=== PATIENT | female | born 1970 ===

== ENCOUNTER → 2018-06-20 | Outpatient (CLI) | payer OTHER ==
[~2018-06-20] MED LIST: GILTUSS TR TAB1 EACH PO; ZYRTEC10 MG PO
== END | disposition home or self-care (01) ==
LOC: SONOGRAMA 09:34 → MAMO-SONO 11:45
DX: R10.2 Pelvic and perineal pain (principal); N20.0 Calculus of kidney

== ENCOUNTER 2018-08-06 09:01 | Emergency (ER) | payer OTHER ==
[~2018-08-06] VITALS: Ht 165.1 cm; Wt 64.9 kg
== END 2018-08-06 12:10 | disposition home or self-care (01) ==
LOC: ER 09:01
DX: J11.1 Influenza due to unidentified influenza virus with other respiratory manifestations (principal)

== ENCOUNTER → 2021-03-28 | Emergency (ER) | payer OTHER | END | disposition left against medical advice (07) | LOC: ER 22:02 | DX: Z53.21 Procedure and treatment not carried out due to patient leaving prior to being seen by health care provider (principal) ==

== ENCOUNTER 2022-03-10 06:16 | Emergency (ER) | payer OTHER ==
[~2022-03-10] VITALS: Ht 165.1 cm; Wt 62.1 kg
[2022-03-10] MEDS ORDERED: OSEL75CA (06:24)
[2022-03-10] MEDS ORDERED: MEDROL8 MG PO (08:23)
[2022-03-10] MEDS ORDERED: BENADRYL25 MG PO (08:23)
== END 2022-03-10 08:27 ==
LOC: ER 06:16
DX: T37.5X5A Adverse effect of antiviral drugs, initial encounter (principal)